=== PATIENT | male | born 1990 ===

== ENCOUNTER 2020-04-01 16:23 | Emergency (ER) | payer SELFPAY ==
[~2020-04-01] VITALS: Ht 177.8 cm; Wt 75.7 kg
[2020-04-01 16:27] VITALS: BP 117/84
[2020-04-01] MEDS ORDERED: hydrOXyzine 50MG TABLET ONE (16:44)
--- NOTE | 2020-04-01 16:51 | NUR ---
PA ORDERS RECEIVED. PT MEDICATED PER JAN. PT CURRENTLY GETTING DRESSED FOR DC
--- NOTE | 2020-04-01 17:04 | NUR ---
PT SEEING SPIDERS, STS HAS BITES ON ARMS, NONE VISUALIZED. PT NON COMPLIANT WITH ALL ASSESSMENT QUESTIONS. PT TO BE DCd WITH MEDS
== END 2020-04-01 17:07 | disposition home or self-care (01) ==
LOC: ED 17:00
DX: F23 Brief psychotic disorder (principal); F41.1 Generalized anxiety disorder
CPT/HCPCS: 99283; Q0177